=== PATIENT | male | born 1985 | race Caucasian/White ===

== ENCOUNTER 2020-08-30 18:45 | Emergency (ER) | payer BC, OTHER ==
[2020-08-30] MEDS ORDERED: traMADol 50 MG Tab PO ONE (20:27)
[2020-08-30] MEDS ORDERED: Diphtheria,Pertussis(Acell),Tetanus Vaccine 0.5 ML Syringe IM ONE (20:27)
--- NOTE | 2020-08-30 20:36 | EDM.PDOC ---
ED HPI GENERAL MEDICAL PROBLEM - General Chief Complaint: Laceration Stated Complaint: FINGER LACERATION Time Seen by Provider: 08/30/20 19:05 Source of Information: Reports: Patient History Limitations: Reports: No Limitations - History of Present Illness INITIAL COMMENTS - FREE TEXT/NARRATIVE: right middle fingertip laceration [facility]. No other injury/complaint. Unknown tetanus status. 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(s) Right Finger-Middle Pain Score (Numeric/FACES): 1 - Related Data Allergies Allergy/AdvReac Type Severity Reaction Status Date / Time No Known Allergies Allergy Verified 08/30/20 18:51 Home Meds: Home Meds Varenicline Tartrate [Chantix] 0.5 mg PO BID 08/30/20 [History] Past Medical History - Past Health History Medical/Surgical History: Denies Medical/Surgical History Social & Family History - Tobacco Use Tobacco Use Status *Q: Former Tobacco User Used Tobacco, but Quit: Yes Month/Year Tobacco Last Used: 3 Second Hand Smoke Exposure: No ED ROS GENERAL - Review of Systems Review Of Systems: See Below Skin: Reports: Other (laceration distal right middle finger. No numbness/loss of function. ) ED EXAM, SKIN/RASH Exam: See Below Exam Limited By: No Limitations General Appearance: Alert, WD/WN, No Apparent Distress Throat/Mouth: Normal Lips, Normal Voice, No Airway Compromise Head: Atraumatic, Normocephalic Neck: Supple Respiratory/Chest: No Respiratory Distress Extremities: Other (superficial thin avulsion/laceration pad of right middle fingertip, oval. No bleeding. Tendon function intact. ) Neurological: Alert, Oriented, Normal Cognition, Normal Gait, No Motor/Sensory Deficits Psychiatric: Normal Affect, Normal Mood Skin: Normal Color ED SKIN PROCEDURES - Laceration/Wound Repair Right Distal Digit - 3rd (Middle) Appearance: Subcutaneous, Irregular (flap type laceration), Clean Distal NVT: Neuro & Vascular Intact, No Tendon Injury Anesthetic Type: Local Local Anesthesia - Lidocaine (Xylocaine): 1% Plain Local Anesthetic Volume: 2cc Skin Prep: Providone-Iodine (Betadine) Exploration/Debridement/Repair: Wound Explored, In a Bloodless Field, Explored to Base, No Foreign Material Found Closed with: Sutures Lac/Wound length In cm: 2 Suture Size: 5-0 # of Sutures: 4 Suture Type: Nylon, Interrupted Drain Placement: No Sterile Dressing Applied: Nurse Tetanus Status Addressed: Yes Complications: No Course - Vital Signs Last Recorded V/S: Last Vital Signs Temp 36.8 C 08/30/20 18:46 Pulse 73 08/30/20 18:46 Resp 16 08/30/20 18:46 BP 177/74 H 08/30/20 18:46 Pulse Ox 99 08/30/20 18:46 - Orders/Labs/Meds Orders: Active Orders 24 hr Category Date Time Status Vaccines to be Administered [RC] PER UNIT ROUTINE Care 08/30/20 20:27 Ordered Fingers Third Digit Rt F7 [CR] Stat Exams 08/30/20 19:41 Ordered Meds: Medications Discontinued Medications Generic Name Dose Route Start Last Admin Trade Name Freq PRN Reason Stop Dose Admin Diphtheria/Tetanus/Acell Pertussis 0.5 ml 08/30/20 20:27 08/30/20 20:47 Diphtheria,Pertussis(Acell),Tetanus Vaccine 0.5 Ml Syringe IM 08/30/20 20:28 0.5 ml .ONCE ONE Administration Lidocaine HCl 5 ml 08/30/20 19:53 08/30/20 20:06 Lidocaine 1% 5 Ml Sdv INJECT 08/30/20 19:54 5 ml ONETIME ONE Administration Neomycin/Polymyxin/Bacitracin 1 each 08/30/20 20:38 08/30/20 20:52 Bacitracin/Neomycin/Polymyxin B Oint 0.9 Gm U/D Packet TOP 08/30/20 20:39 1 each ONETIME ONE Administration Tramadol HCl 100 mg 08/30/20 20:27 08/30/20 20:46 Tramadol 50 Mg Tab PO 08/30/20 20:28 100 mg ONETIME ONE Administration - Re-Assessments/Exams Free Text/Narrative Re-Assessment/Exam: 08/30/20 20:42 Laceration repaired. Tetanus updated. Nurse applied dressing. Wound care reviewed. [facility] note given to patient. He will need to follow up for BP checks as well as have sutures removed next week. BP much improved at time of discharge. Departure - Departure Time of Disposition: 20:43 Disposition: Home, Self-Care 01 Condition: Good Clinical Impression: Laceration of right middle finger Qualifiers: Encounter type: initial encounter Damage to nail status: without damage Foreign body presence: without foreign body Qualified Code(s): S61.212A - Laceration without foreign body of right middle finger without damage to nail, initial encounter - Discharge Information *PRESCRIPTION DRUG MONITORING PROGRAM REVIEWED*: Not Applicable *COPY OF PRESCRIPTION DRUG MONITORING REPORT IN PATIENT REGGIE: Not Applicable Instructions: Laceration Care, Adult, [id number] Referrals: PCP,None [Primary Care Provider] - Forms: ED Department Discharge Additional Instructions: No work through Friday. Get rechecked on Friday if you require any further work restrictions. Get BP checked 3-4 times with [facility] nurse or with your clinic over the next few weeks. It was elevated tonight. That may be due to the finger injury and having to come to ER. See if it improves during the rechecks. If you are still elevated, follow up with your primary care clinic to talk about treatment strategies for hypertension. Sutures out in 7-9 days. Remember, the top flap may get dried up/ off/fall off. Keep finger dressing we put on your finger on through Friday. At that time you can replace it with padding and bandaging on your own. Use antibiotic ointment on the healing area. Pad it up so you can avoid injury to the thin area of skin we sutured. Follow up for recheck if any signs of infection develop. Sepsis Event Note (ED) - Evaluation Sepsis Screening Result: No Definite Risk - Focused Exam Vital Signs: Vital Signs Temp Pulse Resp BP Pulse Ox 08/30/20 18:46 36.8 C 73 16 177/74 H 99 - My Orders Last 24 Hours: My Active Orders 08/30/20 19:41 Fingers Third Digit Rt F7 [CR] Stat 08/30/20 20:27 Vaccines to be Administered [RC] PER UNIT ROUTINE - Assessment/Plan Last 24 Hours: My Active Orders 08/30/20 19:41 Fingers Third Digit Rt F7 [CR] Stat 08/30/20 20:27 Vaccines to be Administered [RC] PER UNIT ROUTINE
[2020-08-30] MEDS ORDERED: Bacitracin/Neomycin/Polymyxin B Oint 0.9 GM U/D Packet TOP ONE (20:38)
== END 2020-08-30 20:55 | disposition home or self-care (01) ==
LOC: LL.ED 18:45
DX: S61.212A Laceration without foreign body of right middle finger without damage to nail, initial encounter (principal); Z87.891 Personal history of nicotine dependence; Z23 Encounter for immunization; W23.0XXA Caught, crushed, jammed, or pinched between moving objects, initial encounter; Y92.89 Other specified places as the place of occurrence of the external cause; Y99.0 Civilian activity done for income or pay
CPT/HCPCS: 12001; 73140-F7; 90471; 90715; 99283; 99283-25; A9270-GY